=== PATIENT | male | born 1960 | race African-American/Black ===

== ENCOUNTER 2016-07-09 19:18 | Emergency (ER) | payer OTHER ==
[2016-07-09 17:12] LABS: BASOPHIL% 0.3 % (0-2.5); DIFF IND NO; EOSINOPHIL# 0.4 X10e3 (0-0.7); EOSINOPHIL% 4.2 % (0.0-7.0); HEMATOCRIT 46.3 % (38.0-50.0); HEMOGLOBIN 14.7 gm/dL (13.0-16.0); LYMPHOCYTE# 3.7 X10e3 (1.0-3.5); MEAN CELL VOLUME 74.2 FL (83-96); MEAN CORPUSCULAR HEMOGLOBIN 23.5 PG (28-34); MEAN CORPUSCULAR HGB CONC 31.7 g/dL (30-36); MONOCYTE% 9.7 % (3.0-12.0); NEUTROPHIL# 5.2 X10e3 (1.5-7.1); NEUTROPHIL% 49.8 % (40-75); PLATELET COUNT 171 X10e3 (140-420); RED BLOOD COUNT 6.25 X10e (3.90-5.60); RED CELL DISTRIBUTION WIDTH 15.1 % (11.0-15.5); WHITE BLOOD COUNT 10.4 X10e3 (4.0-10.5)
[2016-07-09 17:24] LABS: ALBUMIN SERUM 3.9 g/dL (3.5-5.0); BILIRUBIN,TOTAL 0.5 mg/dL (0.2-2.0); BUN/CREATININE RATIO 18.57; CALCIUM SERUM 12.7 mg/dL (8.4-10.2); CREATININE SERUM 0.7 mg/dL (0.6-1.4); GLOM FILT RATE Estimated 123.2 mL/min (>60); POTASSIUM 4.2 mmol/L (3.5-5.1); PROTEIN TOTAL SERUM 8.4 g/dL (6.0-8.3)
[~2016-07-09 19:18] MED LIST: B-1100 MG PO; BACTRIM DS TABL1 TA1 PO; BACTRIM DS TABL1 TAB PO; BAYER CHEWABLE81 MG PO; CIPRO PO; COLACE PO; DARVOCET-N 1001 TAB PO; FLOMAX0.4 M1 DOB; FLOMAX0.4 MG PO; GLIPIZIDE2.5 MG/BO1 PO; GLUCOTROL XL PO; KETOPROFEN PO; LOPRESSOR PO; MIRALAX17 GM DOB; MULTI-DAY VITAM1 TAB PO; MULTI-VITAMIN1 EAC1 PO; NICOTINE TRANSD21 MG EXT; OMNICEF300 MG PO; PERCOCET 7.5/321 TAB PO; PERCOCET5/325 PO; PHENERGAN25 MG PO; PRILOSEC40 MG PO; TYLOX 5/500 CAP1 CAP PO; ZANTAC150 MG; ZANTAC150 MG PO
[2016-12-19] MEDS ORDERED: LISINOPRIL PO (04:55)
[2016-12-19] MEDS ORDERED: NOVOLOG100 U/ML SUBQ (04:57)
== END 2016-07-09 20:15 | disposition home or self-care (01) ==
LOC: CED 19:18
PROVIDERS: Emergency Medicine
DX: E11.65 Type 2 diabetes mellitus with hyperglycemia (principal); Z87.442 Personal history of urinary calculi; F17.210 Nicotine dependence, cigarettes, uncomplicated; Z98.890 Other specified postprocedural states; Z88.0 Allergy status to penicillin
CPT/HCPCS: 36415; 80053; 82947; 85025; 99283

== ENCOUNTER 2016-07-31 11:29 | Emergency (ER) | payer OTHER ==
[2016-12-19] MEDS ORDERED: LISINOPRIL PO (04:55)
[2016-12-19] MEDS ORDERED: NOVOLOG100 U/ML SUBQ (04:57)
== END 2016-07-31 11:42 | disposition home or self-care (01) ==
LOC: CFTX 11:29
DX: Z76.0 Encounter for issue of repeat prescription (principal); E11.65 Type 2 diabetes mellitus with hyperglycemia; I10 Essential (primary) hypertension; F17.210 Nicotine dependence, cigarettes, uncomplicated; Z87.442 Personal history of urinary calculi; Z88.0 Allergy status to penicillin; Z79.84 Long term (current) use of oral hypoglycemic drugs
CPT/HCPCS: 82947; 99282

== ENCOUNTER → 2016-08-28 | Outpatient (CLI) | payer OTHER ==
[~2016-08-28] MED LIST changes: +LISINOPRIL PO; +METFORMIN PO; +NOVOLOG100 U/ML SUBQ
[2016-08-28 13:48] LABS: BASOPHIL% 0.2 % (0-2.5); EOSINOPHIL# 0.4 X10e3 (0-0.7); EOSINOPHIL% 3.1 % (0.0-7.0); HEMATOCRIT 48.4 % (38.0-50.0); HEMOGLOBIN 15.1 gm/dL (13.0-16.0); LYMPHOCYTE# 4.1 X10e3 (1.0-3.5); LYMPHOCYTE% 35.7 % (17.0-45.0); MEAN CELL VOLUME 74.9 FL (83-96); MEAN CORPUSCULAR HEMOGLOBIN 23.4 PG (28-34); MEAN CORPUSCULAR HGB CONC 31.2 g/dL (30-36); MEAN PLATELET VOLUME 10.5 FL (6.5-11.5); MONOCYTE# 0.9 X10e3 (0-1.0); MONOCYTE% 7.8 % (3.0-12.0); NEUTROPHIL# 6.1 X10e3 (1.5-7.1); NEUTROPHIL% 53.2 % (40-75); PLATELET COUNT 146 X10e3 (140-420); RED BLOOD COUNT 6.46 X10e (3.90-5.60); RED CELL DISTRIBUTION WIDTH 14.9 % (11.0-15.5); WHITE BLOOD COUNT 11.5 X10e3 (4.0-10.5)
[2016-08-28 13:55] LABS: DIFF IND NO
[2016-08-28 14:26] LABS: FOLATE (FOLIC ACID) 19.6 ng/mL (>5.8)
[2016-08-28 14:29] LABS: ALBUMIN SERUM 4.1 g/dL (3.5-5.0); BILIRUBIN,TOTAL 0.6 mg/dL (0.2-2.0); CALCIUM SERUM 12.6 mg/dL (8.4-10.2); CREATININE SERUM 0.8 mg/dL (0.6-1.4); GLOM FILT RATE Estimated 116.6 mL/min (>60); POTASSIUM 4.7 mmol/L (3.5-5.1); PROTEIN TOTAL SERUM 8.2 g/dL (6.0-8.3)
[2016-08-31 00:56] LABS: MICROALB UR (PNL) 2.1 mg/dL (***)
[2016-09-01 12:30] LABS: HA AB IGM (HEPPAN) Nonreactive (()); HB CORE AB IGM (HEPPAN) Nonreactive (Nonreactive); HB S AG (HEPPAN) Nonreactive (Nonreactive); HEP C AB (HEPPAN) Reactive (Nonreactive)
== END | disposition home or self-care (01) ==
LOC: CLAB 11:59
PROVIDERS: Nurse Practitioner
DX: K21.9 Gastro-esophageal reflux disease without esophagitis (principal); E05.90 Thyrotoxicosis, unspecified without thyrotoxic crisis or storm; K59.00 Constipation, unspecified; R94.5 Abnormal results of liver function studies; E11.65 Type 2 diabetes mellitus with hyperglycemia
CPT/HCPCS: 36415; 80053; 80061; 80074; 82043; 82570; 82607; 82746; 83036; 84443; 85025; 87522

== ENCOUNTER 2016-09-17 21:10 | Observation (INO) | payer OTHER ==
--- NOTE | ~2016-09-17 | HP ---
Unit #: [id number] #: [id number] Patient: LANA MELGAR [id number] [place] [id number] [facility]. [place], [place] [address] [id number] I MR#: [id number] NAME: LANA MELGAR ROOM: 302 Age: 56 Sex: M Admission Date: 09/18/2016 : 1960 Attending Physician: Rama Weinberg M.D. Primary Care Physician: Anna Oliveros A.P.R.N. HISTORY AND PHYSICAL DIAGNOSIS ON ADMISSION Chest pain. HISTORY OF PRESENT ILLNESS 56-year-old male who presented to [facility] with chest discomfort. Patient was in his usual state of health when he stated that he started to have chest discomfort three to four days prior to admission. The chest pain was midsternal, intermittent, dull in character, nonradiating, lasting for a few minutes and was not associated with any nausea, vomiting, or sweating. The patient stated that she is not having any chest pain currently. The patient is complaining of numbness in his left hand and left side off and on. He denies having rectal bleeding, fever, chills, cough or bloody in urine. The patient is still complaining of mild headache. There is no history of sore throat, sinus congestion or skin rash. The rest of the review of systems is negative. PAST MEDICAL HISTORY 1. Insulin dependent diabetes mellitus. 2. Hypertension. 3. Alcohol induced pancreatitis. 4. Chronic hepatitis C. 5. Hypercalcemia in past with elevated PTH, consistent with hyperparathyroidism. 6. History of kidney stones requiring lithotripsy. ALLERGIES Patient is allergic to penicillin. HOME MEDICATIONS Patient is on metformin 750 mg p.o. b.i.d.; lisinopril; and NovoLog 20 units subcu b.i.d. SOCIAL HISTORY The patient lives along. He smokes one pack of cigarettes per day for the past many years. He drinks two to three beers every day. FAMILY HISTORY Positive for heart disease. PHYSICAL EXAMINATION GENERAL: The patient is lying comfortably in bed, not in any obvious acute distress. Unit #: [id number] #: [id number] Patient: LANA MELGAR VITAL SIGNS: Reveal temperature of 98.4, pulse 65 per minute, respiratory rate is 18 per minute, blood pressure is 148/74. HEENT: No conjunctival congestion. Sclerae is nonicteric. NECK: Supple. Trachea is central. RESPIRATORY: Decreased breath sounds bilaterally. There are no wheezes or crackles. HEART: Regular rate and rhythm. S1 and S2. ABDOMEN: Soft and nontender. Bowel sounds are present in all four quadrants. EXTREMITIES: No pedal edema. SKIN: Warm and dry. NEUROLOGICAL: Strength is 5/5 bilaterally. Cranial nerves are intact bilaterally and sensation is also intact. DIAGNOSTIC STUDIES LABORATORY STUDIES: Patient's labs on admission with creatinine 0.6, sodium 137, potassium 3.8, calcium, level is 12.4. AST is 99, ALT 123. Patient's vitamin B level done which was done in August 2016 was 811, folate was 19.6. TSH done in 08/2016 was 1.25. WBC is 10.9, hemoglobin 14.7, platelet count is 139. IMAGING STUDIES: Chest x-ray did not reveal any active disease. Lungs appear clear. There was no visible pulmonary infiltrate, pneumothorax or pleural effusion. HOSPITAL COURSE The patient was admitted to the hospital. Chest pain: Cardiac enzymes done, which is 0.3. Patient was seen by Dr. Cortes in consultation who stated that patient had a Lexiscan Cardiolite stress done in 10/04/2015, which did not reveal any ischemia. So she recommended patient have cardiac catheterization for definite diagnosis, but patient does not want to do cardiac cath and refused it. She also encouraged patient to quit smoking. Patient had a 2D echocardiogram done in 08/2015, which has revealed ejection fraction of 50% to 60%. Hypercalcemia: Patient states that her calcium levels because of the activity by thyroid. He stated his family doctor was thinking of sending him to a specialist doctor. I have spoken with Dr. Mcdonnell who will see patient in consultation and will followup on outpatient basis. Patient is very anxious and he wants to go home today and he states that he has (1) medicine and he will followup with them on an outpatient basis. Therefore, I will discharge patient home after seen by Dr. Mcdonnell. Patient will be advised to continue him home medications and followup with Dr. Romo who is his primary care physician. RECOMMENDATIONS ON DISCHARGE 1. Condition stable. 2. Activity as tolerated. 3. Followup with primary care physician in one week and her CBC and CMP done. 4. Followup with Dr. Mcdonnell as recommended. 5. Please make note that patient's chest x-ray is clear. He stated that he had lost weight last year but he is gaining it back. I do not see any obvious lung malignancy as his chest x-ray is clear. But I will advise him to followup with his primary care physician. If he loses weight then he needs to have workup done to rule out malignancy. Unit #: [id number] #: [id number] Patient: LANA MELGAR Dictated by Fay Kirkland/noman TD: 09/18/2016 12:26 JOB #: [id number] CC: Fay Collado M.D. HISTORY AND PHYSICAL Page 1 of 1 X Rama Weinberg MD X HISTORY AND PHYSICAL
--- NOTE | ~2016-09-17 | CR72 ---
[facility] A Service of [facility] RADIOLOGY TEXT RESULTS PATIENT: LANA MELGAR LOCATION: [facility] 302- : [birth year] UNIT #: [id number] AGE: [address]: Rama Weinberg MD SEX: M ORDER DR: [id number] [facility] [address] [facility]. [place], [place] [address] [id number] I MR#: [id number] Acc #: [id number] NAME: LANA MELGAR : 1960 SEX: M STUDY DATE/TIME: 09/17/2016 22:25 UNIT: [address] ROOM: [facility] STUDY DESCRIPTION: CR Chest Single View Portable Attending Physician: Jasmina Cao M.D. Ordering Physician: Kath Schaeffer M.D. Primary Care Physician: Betsy LozoyaRSimona MEDICAL IMAGING REPORT This report is preliminary unless electronic signature is present EXAM Chest x-ray 09/17/16. HISTORY 56-year-old male in the ED complaining of 3-day history of chest pain, worsening today. TECHNIQUE AP portable upright chest x-ray. FINDINGS No active disease in the chest. The lungs appear clear. No visible pulmonary infiltrate, pneumothorax or pleural effusion. Heart size normal. Benign calcified granuloma in the left lower lobe medially. No change since 01/20/10. IMPRESSION No active disease. Dictated by... Hal Rogers M.D. THIS IS AN ELECTRONICALLY VERIFIED REPORT Hal Rogers M.D. at 09/18/2016 9:56 PM MAO/tanvir TD: 09/18/2016 08:37 JOB #: [id number] MEDICAL IMAGING REPORT Page 1 of 1 COPY
--- NOTE | ~2016-09-17 | EKG ---
PATIENT: LANA MELGAR UNIT #: [id number] Ventricular Rate: 77 BPM Atrial Rate: 77 BPM P-R Interval: 154 ms QRS Duration: 94 ms Q-T Interval: 372 ms QTC Calculation(Bezet): 420 ms P [place]: 59 degrees Calculated R [place]: 3 degrees Calculated T [place]: 36 degrees Diagnosis Line: Normal sinus rhythm Diagnosis Line: Normal ECG Diagnosis Line: No previous ECGs available Diagnosis Line: Confirmed by JB PATEL MD ([id number]) on Diagnosis Line: 09/18/2016 10:40:53 PM INTERPRETING MD: BINU
--- NOTE | ~2016-09-17 | CO ---
Unit #: [id number] #: [id number] Patient: LANA MELGAR [id number] [address] [place], [place] [address] [id number] I MR#: [id number] NAME: LANA MELGAR ROOM: 302 Age: 56 Sex: M Admission Date: 09/18/2016 : 1960 Attending Physician: Rama Weinberg M.D. Primary Care Physician: Anna Oliveros A.P.R.N. CONSULTATION REPORT REASON FOR CONSULTATION Hypercalcemia. HISTORY OF PRESENT ILLNESS The patient is a 56-year-old male with significant past medical history of hypercalcemia and had almost workup done with including his elevated PTH level. PTH level was done in the past but mainly admitted to the hospital because of chest pain on the left side with some numbness of the fingers, and chest pain has resolved. The patient already feeling better, has some complaining of headache at this time, otherwise unremarkable. The patient found to have calcium level of 12.4 on this admission, it was 12.7 on July 09, it was 11.4 in the past. In fact, his calcium level always been high since 2007. The patient's PTH level was 175, recently in 2015 at that time calcium level was 11.2. The patient denies any other complaint at this time but also history of multiple kidney stones in the past. PAST MEDICAL HISTORY Significant for diabetes mellitus that was diagnosed recently, hypertension, alcohol-induced pancreatitis, history of chronic hepatitis C, hypercalcemia with hyperparathyroidism, history of kidney stones, requiring lithotripsy. ALLERGIES The patient is allergic to penicillin. HOME MEDICATIONS Did include FIDEL inhibitor, metformin, and NovoLog. FAMILY HISTORY Significant for some heart problem. PHYSICAL EXAMINATION GENERAL: The patient is a middle-aged male, not in any acute distress. VITAL SIGNS: Last blood pressure is 148/70, pulse is 80, temperature is 98, and respiratory rate is 16. HEAD AND NECK: Pupils are reactive to light. Extraocular movement intact. Mucous membrane moist. NECK: Supple. No JVD. No palpable lymph node in the neck. Thyroid is not enlarged. No carotid bruit. CHEST: The patient has bilateral air entry. No wheeze. No crackles. HEART: Regular rate and rhythm. No murmur. No gallop. ABDOMEN: Soft and nontender. EXTREMITIES: No edema. Peripheral pulses are palpable. NEUROLOGIC: Grossly nonfocal. Unit #: [id number] #: [id number] Patient: LANA MELGAR DIAGNOSTIC STUDIES LABORATORY RESULTS: Labs showed calcium level is 12. Creatinine is 0.6. Hemoglobin is 14 and white cell count 10. ASSESSMENT AND PLAN 1. Hypercalcemia. 2. Primary hyperparathyroidism. 3. History of kidney stones. 4. History of pancreatitis. DISCUSSION At this time, the patient definitely needs parathyroidectomy especially with the presence of history of kidney stones and also with some history of pancreatitis in the past, although it looks like it was alcohol-induced. The patient will be referred to [facility] at this time, to see Dr. Mcmullen for possible parathyroidectomy. Primary hypercalcemic, hypocalciuria is less likely specially with the presence of kidney stones, because in familial hypercalcemic hypocalciuria, it is unlikely due to have a kidney stones. Will follow up patient in the office in couple of weeks. Thank you for letting me participate in taking care of this patient. Dictated by... Fay Hall/chuckie TD: 09/19/2016 13:53 JOB #: [id number] CONSULTATION REPORT Page 1 of 1 X Anuel Mcdonnell MD X CONSULTATION REPORT
--- NOTE | ~2016-09-17 | CO ---
Unit #: [id number] #: [id number] Patient: LANA MELGAR [id number] [facility]. [place], [place] [address] [id number] I MR#: [id number] NAME: LANA MELGAR ROOM: 302 Age: 56 Sex: M Admission Date: 09/18/2016 : 1960 Attending Physician: Rama Weinberg M.D. Primary Care Physician: Anna Oliveros A.P.R.N. Consultation Date: 09/18/2016 CONSULTATION REPORT REASON FOR CONSULT Chest pain. HISTORY OF PRESENT ILLNESS This is a 56-year-old male, previously known to our group with prior hospitalization in 08/2015 for acute pancreatitis, alcohol abuse, and frequent PVCs with bigeminy and trigeminy. 2D echocardiogram was completed on 09/10/2015, which revealed an ejection fraction of 50% to 55% with mild LVH. Lexiscan Cardiolite stress test was completed on 09/24/2015, which revealed no ischemia. Additional past medical history includes hypertension, diabetes, COPD, and renal stones. The patient states he quit drinking alcohol on 04/13/2016. He presented to the hospital with complaints of chest pain. He states yesterday he was lying down and watching TV when he developed some pain in his left anterior chest that went into his arm and all the way down his leg. The pain was squeezing pain. He also had some numbness in his fingers and toes on the left side. His symptoms lasted all day. There were no reports of nausea or vomiting. He has had a new headache behind both eyes. He admits to lightheadedness, but no syncope. There are no reports of shortness of breath, PND, or orthopnea. He was admitted for chest pain and Cardiology was consulted. The patient states that he was recently diagnosed with hepatitis C about a week ago, but has not undergone treatment. He states that the he has not followed up with Cardiology, and has been taking his medications. PAST MEDICAL HISTORY 1. Previous admission to [facility] in 08/2015 for acute pancreatitis, alcohol abuse, PVCs, and bigeminy/trigeminy. 2. 2D echocardiogram on 09/10/2015 revealed an ejection fraction of 50% to 55%. Mild LVH. RVSP 30 to 40 mmHg. No pericardial effusion. 3. Lexiscan Cardiolite stress test on 09/24/2015 revealed no ischemia. Ejection fraction 56%. 4. Hypertension. 5. Diabetes mellitus, type 2. 6. COPD. 7. Renal stones. 8. Reformed alcohol abuse. 9. Active tobacco abuse. PAST SURGICAL HISTORY Lithotripsy. Unit #: [id number] #: [id number] Patient: LANA MELGAR HOME MEDICATIONS Glucophage 750 mg p.o. b.i.d.; lisinopril, unknown dose; NovoLog 20 units subcu b.i.d. ALLERGIES Penicillin. SOCIAL HISTORY The patient is an active smoker. He smokes up to one pack of cigarettes per day. He is a reformed drinker and quit drinking alcohol on 04/13/2016. He denies illicit drug use. FAMILY HISTORY Significant for heart disease. His mother has had multiple myocardial infarctions. Her first one was at a very young age. He has a sister with heart disease with stent placement and she is in her 50s. REVIEW OF SYSTEMS 10-point review of systems is negative except for details noted above in HPI. PHYSICAL EXAMINATION VITAL SIGNS: Temperature 98.4, pulse 65, blood pressure 140/74. CONSTITUTIONAL: This is a 56-year-old male, in no acute distress. SKIN: Warm and dry. NECK: Supple. No jugular vein distention. No hepatojugular reflux. Normal carotid upstrokes. No carotid bruits auscultated. HEART: S1 and S2. Regular rate and rhythm. No murmurs, rubs, or gallops. LUNGS: Bilateral breath sounds have good air entry throughout all lung resendez. Respirations are even and nonlabored. No rales, rhonchi, or wheezes. ABDOMEN: Soft, nontender, and nondistended. Positive bowel sounds auscultated x4 quadrants. No ascites noted. EXTREMITIES: Lower extremities have no pretibial pitting edema. DP and PT pulses are 2+. Capillary refill less than 3 seconds. DIAGNOSTIC STUDIES LABORATORY RESULTS: White blood cell count 10.6, hemoglobin 14.7, hematocrit 46.8, and platelets 139. Sodium 137, potassium 3.8, chloride 108, CO2 of 21, BUN 13, creatinine 0.6, glucose 139, calcium 12.4, AST 99, ALT 123, and alkaline phosphatase 320. Troponin 0.03. INR 1.1. IMAGING STUDIES: Chest x-ray revealed no acute findings. CARDIOVASCULAR STUDIES: EKG reveals sinus rhythm with no acute changes. IMPRESSION 1. Chest pain with questionable etiology. 2. Hepatitis C. 3. Elevated LFTs. 4. Headache. 5. Recent stress test and 2D echocardiogram in 2016, unremarkable. 6. Hypertension. 7. Diabetes mellitus. 8. Chronic obstructive pulmonary disease. 9. Reformed alcohol abuse. Unit #: [id number] #: [id number] Patient: LANA MELGAR 10. Active tobacco abuse. 11. Hypercalcemia. PLAN 1. The patient presented to the hospital with complaints of chest pain as well as multiple nonspecific symptoms. He was admitted for further evaluation and Cardiology was consulted. 2. The patient's pain is atypical and it has been nearly constant with radiation into his arm and left leg. 3. Cardiac enzymes are negative and EKG is nonacute. 4. The patient was offered a cardiac catheterization due to recurrent chest pain and risk factors with hypertension, diabetes, family history, and tobacco abuse. The patient states that he does not want a cardiac catheterization. 5. He will be continued on lisinopril for hypertension. 6. He has been advised to refrain from tobacco abuse. Dictated by... GAGANDEEP Valladares TD: 09/19/2016 16:35 JOB #: [id number] CONSULTATION REPORT Page 1 of 1 X X CONSULTATION REPORT
--- NOTE | ~2016-09-17 | HP ---
Unit #: [id number] #: [id number] Patient: LANA MELGAR [id number] [address] [address] [id number] I MR#: [id number] NAME: LANA MELGAR ROOM: 302 Age: 56 Sex: M Admission Date: 09/18/2016 : 1960 Attending Physician: Rama Weinberg M.D. Primary Care Physician: Anna Oliveros A.P.R.N. HISTORY AND PHYSICAL ADDENDUM Please make note that I called and discussed with the patient's primary care physician, Dr. Romo, of Medicine and provided him information about the patient's hypercalcemia and he will follow up with patient closely for hypercalcemia. The patient is also aware Dr. Mcdonnell will see patient prior to discharge. Dictated by Fay Kirkland TD: 09/18/2016 12:38 JOB #: [id number] HISTORY AND PHYSICAL Page 1 of 1 X Rama Weinberg MD X HISTORY AND PHYSICAL
[~2016-09-17 21:10] MED LIST changes: -LISINOPRIL PO; -METFORMIN PO; -NOVOLOG100 U/ML SUBQ
[2016-09-17 22:55] LABS: BASOPHIL% 0.4 % (0-2.5); EOSINOPHIL# 0.4 X10e3 (0-0.7); EOSINOPHIL% 3.4 % (0.0-7.0); HEMATOCRIT 46.8 % (38.0-50.0); HEMOGLOBIN 14.7 gm/dL (13.0-16.0); LYMPHOCYTE% 36.8 % (17.0-45.0); MEAN CELL VOLUME 74.7 FL (83-96); MEAN CORPUSCULAR HEMOGLOBIN 23.4 PG (28-34); MEAN CORPUSCULAR HGB CONC 31.3 g/dL (30-36); MEAN PLATELET VOLUME 10.7 FL (6.5-11.5); MONOCYTE# 0.9 X10e3 (0-1.0); MONOCYTE% 8.5 % (3.0-12.0); NEUTROPHIL# 5.5 X10e3 (1.5-7.1); NEUTROPHIL% 50.9 % (40-75); PLATELET COUNT 139 X10e3 (140-420); RED BLOOD COUNT 6.27 X10e (3.90-5.60); RED CELL DISTRIBUTION WIDTH 14.5 % (11.0-15.5); WHITE BLOOD COUNT 10.9 X10e3 (4.0-10.5)
[2016-09-17 22:57] LABS: DIFF IND NO
[2016-09-17 23:05] LABS: INR 1.1; PROTHROMBIN TIME (PATIENT) 11.2 SECONDS (9.6-11.5)
[2016-09-17 23:17] LABS: ALBUMIN SERUM 3.7 g/dL (3.5-5.0); BILIRUBIN, DIRECT 0.1 mg/dL (0.0-0.2); BILIRUBIN,INDIRECT 0.2 mg/dL (0.0-0.9); BILIRUBIN,TOTAL 0.3 mg/dL (0.2-2.0); BUN/CREATININE RATIO 21.66; CALCIUM SERUM 12.4 mg/dL (8.4-10.2); CREATININE SERUM 0.6 mg/dL (0.6-1.4); GLOM FILT RATE Estimated 131.2 mL/min (>60); POTASSIUM 3.8 mmol/L (3.5-5.1); PROTEIN TOTAL SERUM 7.5 g/dL (6.0-8.3)
[2016-09-17 23:20] LABS: POC - CKMB <1.0 ng/mL (0.0-7.9); POC - TROPONIN <0.05 ng/mL (<=0.05)
[2016-09-18 02:14] LABS: POC - CKMB <1.0 ng/mL (0.0-7.9); POC - TROPONIN <0.05 ng/mL (<=0.05)
[2016-09-18] MEDS ORDERED: METFORMIN PO (04:55)
[2016-09-18 08:36] LABS: %MB 3.1 % (0.0-4.0)
[2016-09-18 12:39] LABS: %MB 3.4 % (0.0-4.0); MB 2.4 ng/ml
[2016-09-23 00:32] LABS: CALCIUM (PTHINTACT) 12.4 mg/dL (8.6-10.3); SPE A1GLOB (PNL) 0.3 g/dL (0.2-0.3); SPE A2GLOB (PNL) 0.8 g/dL (0.5-0.9); SPE BETA 1 GLOBULIN 0.5 g/dL (0.4-0.6); SPE BETA 2 GLOBULIN 0.4 g/dL (0.2-0.5); SPE GAMMA (PNL) 1.7 g/dL (0.8-1.7); SPETP (PNL) 7.7 g/dL (6.1-8.1)
[2016-12-19] MEDS ORDERED: LISINOPRIL PO (04:55)
[2016-12-19] MEDS ORDERED: NOVOLOG100 U/ML SUBQ (04:57)
== END 2016-09-18 16:36 | disposition home or self-care (01) ==
LOC: CED 21:10 → CEDOF 09-18 01:36 → CED 09-18 01:45 → CEDOF 09-18 03:41 → C3A PCU 09-18 03:41
PROVIDERS: Emergency Medicine; Internal Medicine; Internal Medicine Nephrology
DX: R07.89 Other chest pain (principal); B19.20 Unspecified viral hepatitis C without hepatic coma; R79.89 Other specified abnormal findings of blood chemistry; R51 Headache; I10 Essential (primary) hypertension; E11.9 Type 2 diabetes mellitus without complications; Z79.4 Long term (current) use of insulin; Z79.84 Long term (current) use of oral hypoglycemic drugs; J44.9 Chronic obstructive pulmonary disease, unspecified; E83.52 Hypercalcemia; F17.210 Nicotine dependence, cigarettes, uncomplicated; Z88.0 Allergy status to penicillin; Z87.898 Personal history of other specified conditions
CPT/HCPCS: 36415; 71010; 80048; 80076; 82310; 82550; 82553; 82947; 83519; 83970; 84165; 84484; 85025; 85610; 86334; 93005; 99285; G0378; J1815

== ENCOUNTER → 2016-12-19 | Day surgery (SDC) | payer OTHER ==
[~2016-12-19] MED LIST changes: +LISINOPRIL PO; +METFORMIN PO; +NOVOLOG100 U/ML SUBQ
--- NOTE | ~2016-12-19 | OR ---
Unit #: [id number] #: [id number] Patient: LANA MELGAR [id number] [address] [address] [id number] MR#: [id number] NAME: LANA MELGAR ROOM: Date of Procedure: 12/19/2016 Admission Date: 12/19/2016 Surgeon: Jonathan Vo M.D. : 1960 Attending Physician: Jonathan Vo M.D. Primary Care Physician: Anna Oliveros A.P.R.N. OPERATIVE REPORT PROCEDURE PERFORMED Esophagogastroduodenoscopy with biopsy. INDICATIONS FOR PROCEDURE The patient with history of liver cirrhosis, undergoing evaluation for varices. MEDICATIONS Monitored anesthesia. POSTOPERATIVE FINDINGS 1. Gastritis. Biopsies taken. 2. No gastric or esophageal varices seen. PLAN Continue with current treatment. Follow up on pathology report. DESCRIPTION OF PROCEDURE The patient was explained of the procedure risk and benefits along with risk and benefits of anesthesia. He was brought to the endoscopy room. Propofol anesthesia was given. Bite block was placed. Scope was passed down the mouth into esophagus, stomach, duodenum, and distal duodenum. Findings as described. Biopsies taken. Gently, the pulled the scope out of the patient's mouth. He tolerated it well. Dictated by... Fay Monroy/chuckie TD: 12/19/2016 13:35 JOB #: [id number] Unit #: [id number] #: [id number] Patient: LANA MELGAR OPERATIVE REPORT Page 1 of 1 X Jonathan Vo MD X PROCEDURE OPERATIVE NOTE
== END | disposition home or self-care (01) ==
LOC: COPS 07:25
DX: K29.50 Unspecified chronic gastritis without bleeding (principal); E11.9 Type 2 diabetes mellitus without complications; I10 Essential (primary) hypertension; J45.909 Unspecified asthma, uncomplicated; F17.210 Nicotine dependence, cigarettes, uncomplicated; Z87.01 Personal history of pneumonia (recurrent); Z88.0 Allergy status to penicillin; Z79.84 Long term (current) use of oral hypoglycemic drugs; Z79.899 Other long term (current) drug therapy; Z98.890 Other specified postprocedural states
CPT/HCPCS: 82947; 88305; 88312